=== PATIENT | female | born 1985 | race African-American/Black ===

== ENCOUNTER 2018-11-27 02:08 | Emergency (ER) | payer MEDICAID ==
[~2018-11-27] VITALS: Ht 160 cm; Wt 72.6 kg
[~2018-11-27 02:08] MED LIST: IBUPROFEN600 MG PO; NORCO 5-325 TA1 EACH PO; PERMETHRIN60 GM TOP
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
[2018-11-27 04:20] LABS: BASOPHILS % (AUTO) 0.8 % (0.0-2.0); EOSINOPHILS % (AUTO) 0.4 % (0.0-3.0); HEMATOCRIT 42.1 % (37.0-47.0); HEMOGLOBIN 13.8 G/DL (12.0-16.0); MEAN CORPUSCULAR VOLUME 91 FL (80-99); MONOCYTES % (AUTO) 9.2 % (1.0-10.0); NEUTROPHILS % (AUTO) 73.6 % (45.0-75.0); PLATELET COUNT 178 K/UL (150-450); RED CELL DISTRIBUTION WIDTH 12.1 % (11.6-14.8); WHITE BLOOD COUNT 9.2 K/UL (4.8-10.8)
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
[2018-11-27 04:30] LABS: ANION GAP 10 mmol/L (5-15); BLOOD UREA NITROGEN 14 mg/dL (7-18); CALCIUM 9.3 MG/DL (8.5-10.1); CARBON DIOXIDE 26 MMOL/L (21-32); CHLORIDE 109 MMOL/L (98-107); CREATININE 0.8 MG/DL (0.55-1.30); POTASSIUM 4.4 MMOL/L (3.5-5.1); SODIUM 145 MMOL/L (136-145)
[2018-11-27 04:33] LABS: INR 0.9 (0.9-1.1)
[2018-11-27 04:34] LABS: ALANINE AMINOTRANSFERASE 29 U/L (12-78); ALBUMIN/GLOBULIN RATIO 1.1 (1.0-2.7); ALKALINE PHOSPHATASE 79 U/L (46-116); ASPARTATE AMINO TRANSFERASE 17 U/L (15-37); BILIRUBIN,TOTAL 0.2 MG/DL (0.2-1.0)
[2018-11-27 05:21] LABS: APPEARANCE,URINE CLEAR; BILIRUBIN, URINE NEGATIVE (NEGATIVE); COLOR,URINE PALE YELLOW; GLUCOSE, URINE (UA) NEGATIVE (NEGATIVE); KETONES,URINE NEGATIVE (NEGATIVE); LEUKOCYTE ESTERASE ,URINE NEGATIVE (NEGATIVE); NITRITE,URINE NEGATIVE (NEGATIVE); PH,URINE 5 (4.5-8.0); PROTEIN,URINE NEGATIVE (NEGATIVE); UROBILINOGEN,URINE NORMAL MG/DL (0.0-1.0)
--- NOTE | 2018-11-27 05:25 | NUR ---
ED Nurse Note: Pt continues to rest quietly in bed after returning from ultrasound, pain level decreased to 4/10, pt conversing and laughing with staff, pt assessed and no vag bleeding or discharge, v/s stable, no cp, no sob or labored breathing, will continue to closely monitor and prepare for disposition.
[2018-11-27 05:30] VITALS: BP 129/76
[2018-11-27] MEDS ORDERED: ACETAMINOPHEN500 M3 ORAL (05:38)
[2018-11-27 05:50] VITALS: BP 129/76
--- NOTE | 2018-11-27 05:50 | NUR ---
ER DISCHARGE NOTE: Patient is cleared to be discharged per ERMD, pt is aox4, on room air, with stable vital signs. pt was given dc and prescription instructions, pt was able to verbalize understanding, pt id band and iv site removed without complications. pt is able to ambulate with steady gait. pt took all belongings.
--- NOTE | 2018-11-27 06:45 | Diagnostic Imaging Report ---
EXAM: US Pelvis Complete, Transabdominal CLINICAL HISTORY: ABD PAIN TECHNIQUE: Real-time transabdominal pelvic ultrasound (complete) with image documentation. COMPARISON: none FINDINGS: Uterus/cervix: Uterus measures 6.8 x 3.6 x 4.4 cm for an estimated volume of 55.8 mm as measured transabdominally. Endovaginally, endometrial stripe measures 10 mm. No myometrial mass. Right ovary: The right ovary measures 2.3 x 1.4 x 1.7 cm and demonstrates normal flow on color and spectral Doppler imaging. Normal blood flow. Left ovary: The left ovary measures 3.3 x 2.3 x 2.6 cm and demonstrates normal flow on color and spectral Doppler imaging. 2.5 cm dominant left ovarian follicle. Normal blood flow. Free fluid: Trace pelvic free fluid in the posterior cul-de-sac. Bladder: Unremarkable as visualized. Wall is normal thickness for degree of distention. IMPRESSION: Negative pelvic ultrasound.
== END 2018-11-27 05:50 | disposition home or self-care (01) ==
LOC: EMR 02:35
DX: R10.9 Unspecified abdominal pain (principal); Z32.02 Encounter for pregnancy test, result negative; Z88.2 Allergy status to sulfonamides
CPT/HCPCS: 36415; 76856; 80053; 81003; 83690; 84702; 85025; 85610; 85730; 86850; 86900; 86901; 99284